=== PATIENT | female | born 1980 | race Caucasian/White ===

== ENCOUNTER 2020-11-29 15:28 | Emergency (ER) | payer OTHER ==
[~2020-11-29] VITALS: Ht 170.2 cm; Wt 105.0 kg
[~2020-11-29 15:28] MED LIST: ACYCLOVIR800 MG PO; CIPROFLOXACN500 MG PO; CYCLOBENZAPR10 MG PO; DRYSOL20 % EX; EQL IBUPROFEN200 MG OR; MEDDOSEPAK PO; MULTIVITAM10 OR; NAPROSYN500 MG PO; POLYSPORIN3.5 GM; PROVENTIL IN; SINGULAIR10 MG PO; TESSALON200 MG PO; VALIUM5 MG PO; VENTOLIN HFA IN; VIGAMOX OD; VIROPTIC7.5 ML OP; VITAMIN B CO OR; VITAMIN C1000 MG OR; ZYRTEC10 M1 PO
[2020-11-29 16:42] LABS: HEMOGLOBIN 13.3 g/dl (12.0-16.0); IMMATURE GRANULOCYTES 0.4 % (0.0-5.0); MEAN CELL VOLUME 90.3 fL CALC (80.0-100.0); MEAN CORPUSCULAR HGB CONC 33.3 g/dL CAL (32.0-36.0); NEUT# 5.64 thou/uL (2.00-7.15); RED BLOOD COUNT 4.43 mill/uL (4.20-5.60); RED CELL DISTRI WIDTH 15.3 % (11.5-15.5)
[2020-11-29] MEDS ORDERED: VENTOLIN HFA108 MCG PO (16:50)
[2020-11-29] MEDS ORDERED: IPRATROPIU0.5 MG/3 M IN (16:51)
[2020-11-29] MEDS ORDERED: HYDROMET1 M1 PO (16:51)
[2020-11-29] MEDS ORDERED: AMBIEN5 MG PO (16:52)
[2020-11-29] MEDS ORDERED: VALIUM2 MG PO (16:52)
[2020-11-29] MEDS ORDERED: VERAPAMIL240 M1 PO (16:53)
[2020-11-29] MEDS ORDERED: PEPCID20 MG PO (16:53)
[2020-11-29] MEDS ORDERED: SINGULAIR10 MG PO (16:53)
[2020-11-29 16:54] LABS: ALBUMIN 4.4 g/dL (3.2-5.0); ALKALINE PHOSPHATASE 45 u/l (38-126); BUN 11 mg/dL (7-17); BUN/CREATININE RATIO 15 (12-20 (CALC)); CARBON DIOXIDE 25 mmol/l (22-30); CHLORIDE 101 mmol/l (95-108); CREATININE 0.8 mg/dL (0.5-1.0); GFR > 60 ML/MIN (>=60 (CALC)); GFR FOR AFR.AMER. > 60 ML/MIN (>=60 (CALC)); LIPASE 100 u/l (23-300); SODIUM 134 mmol/l (137-146); TOTAL PROTEIN 7.9 g/dL (6.3-8.2)
[2020-11-29] MEDS ORDERED: SPIRIVA RE1.25 MCG/A PO (16:54)
[2020-11-29] MEDS ORDERED: SYMBICORT1 AE1 IN (16:54)
[2020-11-29] MEDS ORDERED: FLOVENT HF220 MCG/AC PO (16:55)
[2020-11-29] MEDS ORDERED: VALTREX500 MG PO (16:56)
[2020-11-29] MEDS ORDERED: ZYRTEC10 MG PO (16:56)
[2020-11-29 16:57] LABS: ANION GAP 13 (6-22 (CALC)); BILIRUBIN, TOTAL 1.3 mg/dL (0.0-1.4); POTASSIUM 5.4 mmol/l (3.5-5.1); SGOT/AST 53 u/l (14-36)
[2020-11-29] MEDS ORDERED: SUMATRIPTAN25 MG PO (18:56)
[2020-11-29 19:35] VITALS: BP 136/57
== END 2020-11-29 19:35 | disposition home or self-care (01) | DRG 103 ==
LOC: ED 15:28
PROVIDERS: Family Medicine
DX: R51.9 Headache, unspecified (principal); J45.909 Unspecified asthma, uncomplicated; Z20.822 Contact with and (suspected) exposure to COVID-19

== ENCOUNTER 2020-12-27 15:29 | Observation (INO) | payer OTHER ==
[~2020-12-27 15:29] MED LIST changes: +AMBIEN5 MG PO; +FLOVENT HF220 MCG/AC PO; +HYDROMET1 M1 PO; +IPRATROPIU0.5 MG/3 M IN; +PEPCID20 MG PO; +SPIRIVA RE1.25 MCG/A PO; +SUMATRIPTAN25 MG PO; +SYMBICORT1 AE1 IN; +VALIUM2 MG PO; +VALTREX500 MG PO; +VENTOLIN HFA108 MCG PO; +VERAPAMIL240 M1 PO; +ZYRTEC10 MG PO
[2020-12-27 16:38] LABS: HEMATOCRIT 40.2 % (37.0-47.0); HEMOGLOBIN 13.5 g/dl (12.0-16.0); IMMATURE GRANULOCYTES 0.2 % (0.0-5.0); MEAN CELL VOLUME 91.6 fL CALC (80.0-100.0); MEAN CORPUSCULAR HGB 30.8 pG CALC (26.0-32.0); MEAN CORPUSCULAR HGB CONC 33.6 g/dL CAL (32.0-36.0); NEUT# 4.79 thou/uL (2.00-7.15); RED BLOOD COUNT 4.39 mill/uL (4.20-5.60); RED CELL DISTRI WIDTH 14.3 % (11.5-15.5)
[2020-12-27 16:49] LABS: ALBUMIN 4.3 g/dL (3.2-5.0); ALKALINE PHOSPHATASE 57 u/l (38-126); ANION GAP 15 (6-22 (CALC)); BUN 10 mg/dL (7-17); BUN/CREATININE RATIO 11 (12-20 (CALC)); CARBON DIOXIDE 25 mmol/l (22-30); CHLORIDE 98 mmol/l (95-108); GFR > 60 ML/MIN (>=60 (CALC)); GFR FOR AFR.AMER. > 60 ML/MIN (>=60 (CALC)); MAGNESIUM 1.9 mg/dL (1.6-2.3); POTASSIUM 4.6 mmol/l (3.5-5.1); SGOT/AST 37 u/l (14-36); SODIUM 133 mmol/l (137-146); TOTAL PROTEIN 7.4 g/dL (6.3-8.2)
[2020-12-27 16:53] LABS: BILIRUBIN, TOTAL 0.5 mg/dL (0.0-1.4)
[2020-12-27 20:04] VITALS: BP 141/85
[2020-12-28] MEDS ORDERED: XALATAN0.005 % OU (04:42)
[2020-12-28] MEDS ORDERED: PRED FORTE1 % OU (04:46)
[2020-12-28 05:05] LABS: HEMATOCRIT 39.9 % (37.0-47.0); HEMOGLOBIN 13.2 g/dl (12.0-16.0); IMMATURE GRANULOCYTES 0.3 % (0.0-5.0); MEAN CELL VOLUME 91.7 fL CALC (80.0-100.0); MEAN CORPUSCULAR HGB 30.3 pG CALC (26.0-32.0); MEAN CORPUSCULAR HGB CONC 33.1 g/dL CAL (32.0-36.0); NEUT# 3.18 thou/uL (2.00-7.15); RED BLOOD COUNT 4.35 mill/uL (4.20-5.60); RED CELL DISTRI WIDTH 14.2 % (11.5-15.5)
[2020-12-28 05:31] LABS: ALKALINE PHOSPHATASE 54 u/l (38-126); ANION GAP 13 (6-22 (CALC)); BILIRUBIN, TOTAL 0.4 mg/dL (0.0-1.4); BUN 10 mg/dL (7-17); BUN/CREATININE RATIO 13 (12-20 (CALC)); C-REACTIVE PROTEIN 2.6 mg/dL (0-0.9); CARBON DIOXIDE 22 mmol/l (22-30); CHLORIDE 105 mmol/l (95-108); CREATININE 0.7 mg/dL (0.5-1.0); GFR > 60 ML/MIN (>=60 (CALC)); GFR FOR AFR.AMER. > 60 ML/MIN (>=60 (CALC)); POTASSIUM 4.7 mmol/l (3.5-5.1); SGOT/AST 30 u/l (14-36); SODIUM 136 mmol/l (137-146)
[2020-12-28 08:38] VITALS: BP 136/73
[2020-12-28 11:00] VITALS: BP 153/77
[2020-12-28] MEDS ORDERED: HYDROMET1 M1 PO (11:21)
[2020-12-28] MEDS ORDERED: DECADRON2 MG PO (11:22)
[2020-12-28] MEDS ORDERED: ZOFRAN4 MG/TAB PO (11:23)
== END 2020-12-28 14:37 | disposition home or self-care (01) | DRG 178 ==
LOC: ED 15:29 → ED-I 16:05 → ED 18:37 → MS2 18:38
PROVIDERS: Emergency Medicine; ADMIT Hospitalist; ATTEND Hospitalist
DX: U07.1 COVID-19 (principal); D84.9 Immunodeficiency, unspecified; J45.909 Unspecified asthma, uncomplicated; F41.9 Anxiety disorder, unspecified; G43.909 Migraine, unspecified, not intractable, without status migrainosus; Z79.52 Long term (current) use of systemic steroids
CPT/HCPCS: G0378; J1650

== ENCOUNTER 2021-01-01 17:34 | Observation (INO) | payer OTHER ==
[~2021-01-01] VITALS: Ht 167.6 cm; Wt 102.0 kg
[~2021-01-01 17:34] MED LIST changes: +DECADRON2 MG PO; +PRED FORTE1 % OU; +XALATAN0.005 % OU; +ZOFRAN4 MG/TAB PO
--- NOTE | 2021-01-01 17:38 | NUR ---
PT TO RM 13 VIA W/C FOR B/S TRIAGE.
[2021-01-01 18:08] LABS: HEMOGLOBIN 13.6 g/dl (12.0-16.0); IMMATURE GRANULOCYTES 0.4 % (0.0-5.0); MEAN CELL VOLUME 91.7 fL CALC (80.0-100.0); MEAN CORPUSCULAR HGB 30.4 pG CALC (26.0-32.0); MEAN CORPUSCULAR HGB CONC 33.2 g/dL CAL (32.0-36.0); NEUT# 6.15 thou/uL (2.00-7.15); RED BLOOD COUNT 4.47 mill/uL (4.20-5.60); RED CELL DISTRI WIDTH 14.1 % (11.5-15.5)
[2021-01-01 18:21] LABS: ALBUMIN 3.7 g/dL (3.2-5.0); ALKALINE PHOSPHATASE 67 u/l (38-126); BILIRUBIN, TOTAL 0.5 mg/dL (0.0-1.4); BUN 12 mg/dL (7-17); BUN/CREATININE RATIO 14 (12-20 (CALC)); C-REACTIVE PROTEIN 5.3 mg/dL (0-0.9); CARBON DIOXIDE 21 mmol/l (22-30); CHLORIDE 102 mmol/l (95-108); CREATININE 0.8 mg/dL (0.5-1.0); GFR > 60 ML/MIN (>=60 (CALC)); GFR FOR AFR.AMER. > 60 ML/MIN (>=60 (CALC)); SGOT/AST 29 u/l (14-36); SODIUM 133 mmol/l (137-146)
[2021-01-01 18:23] LABS: ANION GAP 13 (6-22 (CALC)); POTASSIUM 3.4 mmol/l (3.5-5.1)
[2021-01-01 18:23] LABS: GFR > 60 ML/MIN (>=60 (CALC)); GFR FOR AFR.AMER. > 60 ML/MIN (>=60 (CALC))
--- NOTE | 2021-01-01 20:24 | NUR ---
Reassessment of patient completed. No distress noted.
[2021-01-01 20:50] VITALS: BP 93/45
--- NOTE | 2021-01-01 20:50 | NUR ---
PT ARRIVED TO [facility] VIA WC ACCOMPANIED BY ED NURSE. PT APPEARS TO BE STABLE AT THIS TIME. PT SELF AMBULATED TO THE BED. SHE IS ASKING FOR SOMETHING TO EAT. WE DISCUSSED POC AND MEDICATIONS. V/S ASSESSED AT THIS TIME. INCENTIVE SPIROMETER PROVIDED AND SHE DEMONSTRATED ITS USE, ONLY ABLE TO MEASURE BREATHS AT LESS THAN 500 ON IS. EDUCATED HER ON ITS USE AND LEFT IT AT BEDSIDE W/IN REACH. PT ORIENTED TO ROOM, CALL SYSTEM, LIGHTS, TV AND BED, VERBALIZED UNDERSTANDING. PT OXYGEN SAT 98% ON ROOM AIR. NC PLACED AT BEDSIDE WITH AVAILABLE OXYGEN PRN.
--- NOTE | 2021-01-01 23:48 | NUR ---
PT CALLED TO ASK FOR COOL PACKS TO HER FEET STATING THAT "THE STEROIDS MAKE MY FEET HURT." V/S ARE BEING OBTAINED BY LONG TERM AT THIS TIME. PT DENIES ANY OTHER NEEDS AT THIS TIME. CALL LIGHT IS AT SIDE WITHIN REACH. REMINDED HER OF IS USE, VERBALIZED UNDERSTANDING.
[2021-01-02] VITALS: BP 97/50
--- NOTE | 2021-01-02 03:05 | NUR ---
PT CALLED COUGHING AND WOULD NOT ANSWER, UPON ENTERING HER ROOM, SHE WAS SITTING UP IN THE BED WITH LEGS CROSSED COUGHING AND IMMEDIATELY ASKED IF I WOULD PROVIDE PERCUSSION TO HER BACK FOR RELIEF. PT OXYGEN SAT CHECKED FIRST TO BE AT 95% ON ROOM AIR. I HAD THE PT LAY PRONE AND PROVIDED HAND PERCUSSION PER REQUEST. PT REPORTS FEELING RELIEF. ADDITIONAL PILLOW PROVIDED FOR COMFORT IN LAYING PRONE. SHE ASKED HOW LONG SHE NEEDS TO LAY LIKE THAT, I EDUCATED HER ONCE AGAIN ON LAYING PRONE OFF AND ON MUCH SHE CAN WILL ASSIST IN PROVIDING RELIEF. SHE VERBALIZED UNDERSTANDING.
[2021-01-02 04:00] VITALS: BP 135/82
--- NOTE | 2021-01-02 05:23 | NUR ---
PT MEDICATED FOR GENERALIZED PAIN AND PAIN WHEN COUGHING, NAUSEA AND FOR COUGH. ASSISTED TO RESTROOM. PT AMBULATES SELF STABLE.
--- NOTE | 2021-01-02 05:56 | NUR ---
PT IVF REPLENISHED AT THIS TIME. SHE REPORTED BEING "WET." I ASSISTED PT TO STAND FROM RECLINER TO CHANGE HER PAD ON THE CHAIR AND BLOODY URINE DRAINED AROUND NELSON CATHETER. SHE REPORTED THAT THIS HAS BEEN GOING ON FOR TWO MONTHS SINCE SHE HAD THE THREE WAY CATHETER PLACED PREVIOUSLY. PT WAS CLEANED OF BLOODY URINE AND ASSISTED BACK IN THE RECLINER WITH PAD. NELSON CATHETER DRAINING TO GRAVITY BLOODY OUTPUT. PT HAS BEEN NPO SINCE MIDNIGHT. DENIES ANY DISCOMFORT AT THIS TIME, JUST REPORTS NOT BEING ABLE TO SLEEP ANYMORE.
[2021-01-02 06:01] LABS: HEMATOCRIT 38.5 % (37.0-47.0); HEMOGLOBIN 12.7 g/dl (12.0-16.0); IMMATURE GRANULOCYTES 0.5 % (0.0-5.0); MEAN CELL VOLUME 92.8 fL CALC (80.0-100.0); MEAN CORPUSCULAR HGB 30.6 pG CALC (26.0-32.0); NEUT# 5.72 thou/uL (2.00-7.15); RED BLOOD COUNT 4.15 mill/uL (4.20-5.60); RED CELL DISTRI WIDTH 14.3 % (11.5-15.5)
[2021-01-02 06:32] LABS: ALBUMIN 3.4 g/dL (3.2-5.0); ALKALINE PHOSPHATASE 65 u/l (38-126); BILIRUBIN, TOTAL 0.3 mg/dL (0.0-1.4); BUN 10 mg/dL (7-17); BUN/CREATININE RATIO 14 (12-20 (CALC)); CARBON DIOXIDE 22 mmol/l (22-30); CHLORIDE 103 mmol/l (95-108); CREATININE 0.7 mg/dL (0.5-1.0); GFR > 60 ML/MIN (>=60 (CALC)); GFR FOR AFR.AMER. > 60 ML/MIN (>=60 (CALC)); SGOT/AST 21 u/l (14-36); SODIUM 134 mmol/l (137-146); TOTAL PROTEIN 6.2 g/dL (6.3-8.2)
[2021-01-02 06:43] LABS: ANION GAP 13 (6-22 (CALC)); C-REACTIVE PROTEIN 12.8 mg/dL (0-0.9); POTASSIUM 4.4 mmol/l (3.5-5.1)
--- NOTE | 2021-01-02 07:15 | NUR ---
REPORT RECEIVED FROM MERNA FISHER
--- NOTE | 2021-01-02 08:55 | NUR ---
PT RESTING IN SEMI FOWLERS POSITION,A&O X3;VS OBTAINED AND ASSESSMENT COMPLETED;PT DENIES ANY CURRENT PAIN OR DISCOMFORTS,PAIN SCALE AND REPORTING EDUCATED;PT ANXIOUS AND MEDICATED WITH PRN VALIUM 2.5MG PO AT THIS TIME;RESPIRATIONS EVEN AND UNLABORED ON O2 @ 2L VIA NC,CLEAR/DIMINISHED LUNG SOUNDS NOTED;NON-PRODUCTIVE COUGH;I.S. AT BEDSIDE AND PT EDUCATED ON USE,ENCOURAGED USE 10X PER HOUR;ABDOMEN SOFT ON PALPATION AND ACTIVE IN ALL 4 QUADRANTS;STRONG PEDAL PULSES;SKIN INTACT;TELE MONITORING IN PLACE;#20G TO RAC INFUSING NS @ 75ML/HR,SITE APPEARS HEALTHY;PT DENIES ANY ADDITIONAL NEEDS AND IS ENCOURAGED TO CALL FOR ASSISTANCE IF NEEDED;PT REMAINS IN AIR/CONTACT PRECAUTIONS DUE TO COVID19 DX;FALL PRECAUTIONS IN PLACE WITH BED IN THE LOWEST POSITION AND CALL LIGHT IN REACH;WILL CONTINUE TO MONITOR
[2021-01-02 08:56] VITALS: BP 132/91
--- NOTE | 2021-01-02 09:40 | NUR ---
PT note Patient is screened for PT intervention and no needs are identified at this time
[2021-01-02] MEDS ORDERED: TESSALON PERLE100 MG PO (09:57)
[2021-01-02] MEDS ORDERED: FAMOTIDINE40 M1 PO (09:57)
[2021-01-02] MEDS ORDERED: AZELASTINE HCL0.1 % (09:58)
[2021-01-02 10:46] VITALS: BP 132/80
--- NOTE | 2021-01-02 11:05 | NUR ---
PT APPEARS TO BE SLEEPING IN SEMI FOWLERS POSITION;RESPIRATIONS EVEN AND UNLABORED ON O2 @ 2L VIA NC;NO S/S OF DISTRESS NOTED;TELE MONITORING IN PLACE;IV SITE PATENT INFUSING NS WITH EASE PER ORDER;ALL SAFETY PRECAUTIONS REMAIN IN PLACE WITH CALL LIGHT IN REACH;WILL CONTINUE TO MONITOR
--- NOTE | 2021-01-02 11:32 | NUR ---
AT BEDSIDE DISCUSSING POC WITH PT.
--- NOTE | 2021-01-02 12:50 | NUR ---
PT REPORTS COUGH AND "FEELS LIKE I HAVE A FEVER";TEMP TAKEN AND WNL;PT MEDICATED WITH PRN ROBITUSSIN AC AND TYLENOL 650MG PO PER REQUEST;RESPIRATIONS EVEN AND UNLABORED ON RA;IV SITE PATENT AND TELE MONITORING IN PLACE;PT DENIES ANY ADDITIONAL NEEDS;ENCOURAGED TO CALL FOR ASSISTANCE IF NEEDED;CALL LIGHT IN REACH;WILL CONTINUE TO MONITOR
[2021-01-02 13:00] LABS: URINE BILIRUBIN - DIPSTICK NEGATIVE (NEGATIVE); URINE BLOOD DIPSTICK NEGATIVE (NEGATIVE); URINE COLOR YELLOW; URINE GLUCOSE - DIPSTICK NEGATIVE (NEGATIVE); URINE KETONE NEGATIVE (NEGATIVE); URINE LEUK ESTERASE NEGATIVE (NEGATIVE); URINE PH 6.5 (4.5-8.0); URINE PROTEIN - DIPSTICK NEGATIVE (NEG-TRACE); URINE UROBILINOGEN - DIPSTICK 0.2 E.U./dL (0.2)
[2021-01-02 13:22] LABS: URINE NITRITE - DIPSTICK NEGATIVE (Negative)
[2021-01-02 15:12] VITALS: BP 123/70
--- NOTE | 2021-01-02 15:45 | NUR ---
PT RESTING IN SEMI FOWLERS POSITION;RESPIRATIONS APPEAR EVEN AND UNLABORED, PT REPLACED OXYGEN HERSELF REPORTING "I FELT SOB AND MY OXYGEN WAS 92%;PT RE-ASSURED AT THIS TIME;PT DENIES ANY CURRENT PAIN OR DISCOMFORTS;TELE MONITORING IN PLACE;IV FLUIDS INFUSING AT 20ML/HR PER ORDER;PT DENIES ANY ADDITIONAL NEEDS AND IS ENCOURAGED TO CALL FOR ASSISTANCE IF NEEDED;FALL PRECAUTIONS IN PLACE WITH CALL LIGHT IN REACH;WILL CONTINUE TO MONITOR
[2021-01-02 19:00] VITALS: BP 158/71
--- NOTE | 2021-01-02 20:00 | NUR ---
Received Pt from day shift nurse. Pt oriented to person, place and time. Awake and alert. Assesment documented and medications provided (Emar). Educated Pt about medications, plan of care, Covid-19 isolations, falls and safety precautions.
[2021-01-03] VITALS: BP 140/71
--- NOTE | 2021-01-03 | NUR ---
Hourly rounding provided. Anxiety medications provided (See Emar) New iv inserted, patent, clean and intact. Snack provided. Re-educated PT about covid-19 precautions.
--- NOTE | 2021-01-03 04:19 | NUR ---
Hourly rounding provided. Vital signs are stable. No complaint about pain at this time. Re educated PT about plan of care.
[2021-01-03 04:30] VITALS: BP 140/80
[2021-01-03 05:11] LABS: HEMATOCRIT 37.2 % (37.0-47.0); HEMOGLOBIN 12.2 g/dl (12.0-16.0); IMMATURE GRANULOCYTES 0.8 % (0.0-5.0); MEAN CELL VOLUME 93.5 fL CALC (80.0-100.0); MEAN CORPUSCULAR HGB 30.7 pG CALC (26.0-32.0); MEAN CORPUSCULAR HGB CONC 32.8 g/dL CAL (32.0-36.0); NEUT# 6.53 thou/uL (2.00-7.15); RED BLOOD COUNT 3.98 mill/uL (4.20-5.60); RED CELL DISTRI WIDTH 14.3 % (11.5-15.5)
[2021-01-03 05:39] LABS: ALBUMIN 3.3 g/dL (3.2-5.0); ALKALINE PHOSPHATASE 55 u/l (38-126); ANION GAP 14 (6-22 (CALC)); BILIRUBIN, TOTAL 0.3 mg/dL (0.0-1.4); BUN 8 mg/dL (7-17); BUN/CREATININE RATIO 13 (12-20 (CALC)); CARBON DIOXIDE 25 mmol/l (22-30); CHLORIDE 102 mmol/l (95-108); CREATININE 0.6 mg/dL (0.5-1.0); GFR > 60 ML/MIN (>=60 (CALC)); GFR FOR AFR.AMER. > 60 ML/MIN (>=60 (CALC)); POTASSIUM 4.6 mmol/l (3.5-5.1); SGOT/AST 19 u/l (14-36); SODIUM 137 mmol/l (137-146)
[2021-01-03 06:50] VITALS: BP 138/80
--- NOTE | 2021-01-03 06:50 | NUR ---
PATIENT UP TO BR AT THIS TIME. PATIENT EXHIBIT COUGH (NON PRODUCTIVE) REQUESTIONG COUGH MEDICATION AT THIS TIME. 10ML OF GUAIFENESIN GIVEN ORALLY. LUNG DIAZ REMAIN CLEAR/DIMIMISHED IN LOWER BASES. TELE MONITOR IN PLACE AND BEING MONITORED BY ED. CALL LIGHT WITHIN REACH.
[2021-01-03 11:32] VITALS: BP 144/93
--- NOTE | 2021-01-03 11:36 | NUR ---
PATIENT RESTING IN BED AT THIS TIME. PATIENT STATES SHE ONLY GETS SHORT OF BREATH UPON EXERCTION. PATIENT DENIES ANY MAJOR PAIN AND DOES STATE THE COUGH MEDICATION GIVEN EARLIER HELP. SIDERAILS ARE UP CALL LIGHT WITHIN REACH.
--- NOTE | 2021-01-03 12:57 | NUR ---
PATIETN COMPLAINGING OF GENERALIZED PAIN AT THIS TIME AND REQUESTING TYLENOL AND COUGH MEDICATION. PATIENT STATES PAIN LEVEL IS A "7" OUT OF THE PAIN SCALE OF 0-10 AND 650MG OF TYLENOL GIVEN AND 10ML OF GUAIFENESIN ORAL SOLUTIONS GIVEN FOR COUGH. SIDERAILS ARE UP X 2 CALL LIGHT WITHIN REACH.
--- NOTE | 2021-01-03 13:16 | NUR ---
SIX MINUTE WALK TEST PREFORMED AND RESULTS WERE FOLLOWS: O2 WAS OFF FOR 30 MINUTES AND PATIENTS SPO2 WAS 91%. PATIENT WAS THEN WALKED AROUND IN ROOM AND IN HALLWAY FULLY MASKED AND HER SPO2 WAS 90 %. PATIENT RETURNED TO ROOM AND O2 APPLIED AND WALKED AND SPO2 CAME UP TO 93%. PATIENT RETURNED TO BED AND FINAL RESTING SPO2 WAS 94%. ALL FINDING REPORTED TO MARY BARCENAS AT THIS TIME.
[2021-01-03] MEDS ORDERED: ZITHROMAX250 MG PO (14:20)
[2021-01-03] MEDS ORDERED: ASPIRIN REGULA325 M1 PO (14:21)
[2021-01-03] MEDS ORDERED: PREDNISONE10 MG PO (14:21)
--- NOTE | 2021-01-03 15:12 | NUR ---
PATIENT DC AT THIS TIME. IV REMOVED TIP INTACT, TELE REMOVED ED NOTIFIED. PATIENT VERBALIZES UNDERSTANDING OF D/C INSTRUCTIONS.
--- NOTE | 2021-01-03 15:41 | NUR ---
Discharge instructions given. Patient verbalizes understanding of same. Discharged in stable condition via Wheelchair to Home with family. All belongings sent with pt. PATIENT TOOK ALL PERSONAL BELONGINGS AT TIME OF D/C.
== END 2021-01-03 15:38 | disposition home or self-care (01) | DRG 177 ==
LOC: ED 17:34 → ED-I 19:27 → ED 19:40 → MS2 19:41
PROVIDERS: Family Medicine; Nurse Practitioner; ADMIT Internal Medicine; ATTEND Internal Medicine
DX: U07.1 COVID-19 (principal); J12.82 Pneumonia due to coronavirus disease 2019; E87.2 Acidosis; J45.901 Unspecified asthma with (acute) exacerbation; E87.6 Hypokalemia; I10 Essential (primary) hypertension; F41.9 Anxiety disorder, unspecified; K21.9 Gastro-esophageal reflux disease without esophagitis
CPT/HCPCS: G0378; J1650; Q9967

== ENCOUNTER 2021-01-04 08:51 | Inpatient (IN) | payer OTHER ==
[~2021-01-04] VITALS: Ht 170.2 cm; Wt 45.0 kg
[~2021-01-04 08:51] MED LIST changes: +ASPIRIN REGULA325 M1 PO; +AZELASTINE HCL0.1 %; +FAMOTIDINE40 M1 PO; +PREDNISONE10 MG PO; +TESSALON PERLE100 MG PO; +ZITHROMAX250 MG PO
[2021-01-04 10:00] LABS: HEMOGLOBIN 12.8 g/dl (12.0-16.0); IMMATURE GRANULOCYTES 1.2 % (0.0-5.0); MEAN CELL VOLUME 92.6 fL CALC (80.0-100.0); MEAN CORPUSCULAR HGB 30.4 pG CALC (26.0-32.0); MEAN CORPUSCULAR HGB CONC 32.8 g/dL CAL (32.0-36.0); NEUT# 11.78 thou/uL (2.00-7.15); RED BLOOD COUNT 4.21 mill/uL (4.20-5.60); RED CELL DISTRI WIDTH 14.3 % (11.5-15.5)
[2021-01-04 10:12] LABS: ALBUMIN 3.6 g/dL (3.2-5.0); ALKALINE PHOSPHATASE 64 u/l (38-126); ANION GAP 10 (6-22 (CALC)); BILIRUBIN, TOTAL 0.4 mg/dL (0.0-1.4); BUN 13 mg/dL (7-17); BUN/CREATININE RATIO 17 (12-20 (CALC)); C-REACTIVE PROTEIN 8.8 mg/dL (0-0.9); CARBON DIOXIDE 29 mmol/l (22-30); CHLORIDE 97 mmol/l (95-108); CREATININE 0.7 mg/dL (0.5-1.0); GFR > 60 ML/MIN (>=60 (CALC)); GFR FOR AFR.AMER. > 60 ML/MIN (>=60 (CALC)); POTASSIUM 3.9 mmol/l (3.5-5.1); SGOT/AST 24 u/l (14-36); SODIUM 132 mmol/l (137-146); TOTAL PROTEIN 6.9 g/dL (6.3-8.2)
[2021-01-04 10:35] LABS: URINE BILIRUBIN - DIPSTICK NEGATIVE (NEGATIVE); URINE BLOOD DIPSTICK NEGATIVE (NEGATIVE); URINE COLOR YELLOW; URINE GLUCOSE - DIPSTICK NEGATIVE (NEGATIVE); URINE KETONE NEGATIVE (NEGATIVE); URINE LEUK ESTERASE NEGATIVE (NEGATIVE); URINE PH 7.5 (4.5-8.0); URINE PROTEIN - DIPSTICK NEGATIVE (NEG-TRACE); URINE UROBILINOGEN - DIPSTICK 0.2 E.U./dL (0.2)
[2021-01-04 10:37] LABS: URINE NITRITE - DIPSTICK NEGATIVE (Negative)
[2021-01-04 16:12] VITALS: BP 141/83
[2021-01-04 19:31] VITALS: BP 121/79
[2021-01-05] VITALS (7 sets, daily range): BP systolic 114–160; BP diastolic 59–84
[2021-01-05 05:52] LABS: HEMATOCRIT 35.6 % (37.0-47.0); HEMOGLOBIN 11.9 g/dl (12.0-16.0); IMMATURE GRANULOCYTES 1.4 % (0.0-5.0); MEAN CELL VOLUME 92.5 fL CALC (80.0-100.0); MEAN CORPUSCULAR HGB 30.9 pG CALC (26.0-32.0); MEAN CORPUSCULAR HGB CONC 33.4 g/dL CAL (32.0-36.0); NEUT# 13.54 thou/uL (2.00-7.15); RED BLOOD COUNT 3.85 mill/uL (4.20-5.60); RED CELL DISTRI WIDTH 14.2 % (11.5-15.5)
[2021-01-05 06:09] LABS: ALKALINE PHOSPHATASE 54 u/l (38-126); ANION GAP 12 (6-22 (CALC)); BILIRUBIN, TOTAL 0.4 mg/dL (0.0-1.4); BUN 12 mg/dL (7-17); BUN/CREATININE RATIO 19 (12-20 (CALC)); CARBON DIOXIDE 24 mmol/l (22-30); CHLORIDE 101 mmol/l (95-108); CREATININE 0.6 mg/dL (0.5-1.0); GFR > 60 ML/MIN (>=60 (CALC)); GFR FOR AFR.AMER. > 60 ML/MIN (>=60 (CALC)); POTASSIUM 4.4 mmol/l (3.5-5.1); SGOT/AST 21 u/l (14-36); SODIUM 133 mmol/l (137-146); TOTAL PROTEIN 5.8 g/dL (6.3-8.2)
[2021-01-05 06:33] LABS: C-REACTIVE PROTEIN 18.6 mg/dL (0-0.9)
[2021-01-06] VITALS (11 sets, daily range): BP systolic 110–145; BP diastolic 58–85
[2021-01-06 06:57] LABS: ALKALINE PHOSPHATASE 50 u/l (38-126); ANION GAP 14 (6-22 (CALC)); BILIRUBIN, TOTAL 0.4 mg/dL (0.0-1.4); BUN 15 mg/dL (7-17); BUN/CREATININE RATIO 24 (12-20 (CALC)); CARBON DIOXIDE 22 mmol/l (22-30); CHLORIDE 103 mmol/l (95-108); CREATININE 0.6 mg/dL (0.5-1.0); GFR > 60 ML/MIN (>=60 (CALC)); GFR FOR AFR.AMER. > 60 ML/MIN (>=60 (CALC)); HEMATOCRIT 36.4 % (37.0-47.0); HEMOGLOBIN 11.8 g/dl (12.0-16.0); MEAN CELL VOLUME 92.9 fL CALC (80.0-100.0); MEAN CORPUSCULAR HGB 30.1 pG CALC (26.0-32.0); MEAN CORPUSCULAR HGB CONC 32.4 g/dL CAL (32.0-36.0); POTASSIUM 4.6 mmol/l (3.5-5.1); RED BLOOD COUNT 3.92 mill/uL (4.20-5.60); RED CELL DISTRI WIDTH 14.2 % (11.5-15.5); SGOT/AST 20 u/l (14-36); SODIUM 135 mmol/l (137-146); TOTAL PROTEIN 5.7 g/dL (6.3-8.2)
[2021-01-07] VITALS (14 sets, daily range): BP systolic 111–154; BP diastolic 62–87
[2021-01-07 06:14] LABS: HEMATOCRIT 36.4 % (37.0-47.0); HEMOGLOBIN 11.9 g/dl (12.0-16.0); IMMATURE GRANULOCYTES 5.8 % (0.0-5.0); MEAN CELL VOLUME 92.6 fL CALC (80.0-100.0); MEAN CORPUSCULAR HGB 30.3 pG CALC (26.0-32.0); MEAN CORPUSCULAR HGB CONC 32.7 g/dL CAL (32.0-36.0); NEUT# 13.27 thou/uL (2.00-7.15); RED BLOOD COUNT 3.93 mill/uL (4.20-5.60); RED CELL DISTRI WIDTH 14.2 % (11.5-15.5)
[2021-01-07 06:50] LABS: ALKALINE PHOSPHATASE 60 u/l (38-126); ANION GAP 14 (6-22 (CALC)); BILIRUBIN, TOTAL 0.4 mg/dL (0.0-1.4); BUN 19 mg/dL (7-17); BUN/CREATININE RATIO 27 (12-20 (CALC)); C-REACTIVE PROTEIN 5.6 mg/dL (0-0.9); CARBON DIOXIDE 22 mmol/l (22-30); CHLORIDE 102 mmol/l (95-108); CREATININE 0.7 mg/dL (0.5-1.0); GFR > 60 ML/MIN (>=60 (CALC)); GFR FOR AFR.AMER. > 60 ML/MIN (>=60 (CALC)); POTASSIUM 4.5 mmol/l (3.5-5.1); SGOT/AST 21 u/l (14-36); SODIUM 133 mmol/l (137-146); TOTAL PROTEIN 5.7 g/dL (6.3-8.2)
[2021-01-08] VITALS (22 sets, daily range): BP systolic 116–152; BP diastolic 63–84
[2021-01-08 05:15] LABS: HEMATOCRIT 35.8 % (37.0-47.0); HEMOGLOBIN 11.9 g/dl (12.0-16.0); MEAN CELL VOLUME 92.5 fL CALC (80.0-100.0); MEAN CORPUSCULAR HGB 30.7 pG CALC (26.0-32.0); MEAN CORPUSCULAR HGB CONC 33.2 g/dL CAL (32.0-36.0); RED BLOOD COUNT 3.87 mill/uL (4.20-5.60)
[2021-01-08 05:43] LABS: ALKALINE PHOSPHATASE 58 u/l (38-126); ANION GAP 14 (6-22 (CALC)); BILIRUBIN, TOTAL 0.4 mg/dL (0.0-1.4); BUN 19 mg/dL (7-17); BUN/CREATININE RATIO 27 (12-20 (CALC)); CARBON DIOXIDE 24 mmol/l (22-30); CHLORIDE 98 mmol/l (95-108); CREATININE 0.7 mg/dL (0.5-1.0); GFR > 60 ML/MIN (>=60 (CALC)); GFR FOR AFR.AMER. > 60 ML/MIN (>=60 (CALC)); POTASSIUM 4.7 mmol/l (3.5-5.1); SGOT/AST 19 u/l (14-36); SODIUM 131 mmol/l (137-146); TOTAL PROTEIN 5.6 g/dL (6.3-8.2)
[2021-01-09] VITALS (23 sets, daily range): BP systolic 102–135; BP diastolic 55–81
[2021-01-09 04:14] LABS: HEMATOCRIT 35.1 % (37.0-47.0); HEMOGLOBIN 11.8 g/dl (12.0-16.0); MEAN CELL VOLUME 91.6 fL CALC (80.0-100.0); MEAN CORPUSCULAR HGB 30.8 pG CALC (26.0-32.0); MEAN CORPUSCULAR HGB CONC 33.6 g/dL CAL (32.0-36.0); NEUT# 11.47 thou/uL (2.00-7.15); RED BLOOD COUNT 3.83 mill/uL (4.20-5.60); RED CELL DISTRI WIDTH 13.7 % (11.5-15.5)
[2021-01-09 04:19] LABS: IMMATURE GRANULOCYTES 7.3 % (0.0-5.0)
[2021-01-09 04:49] LABS: ALBUMIN 2.9 g/dL (3.2-5.0); ALKALINE PHOSPHATASE 72 u/l (38-126); ANION GAP 13 (6-22 (CALC)); BILIRUBIN, TOTAL 0.5 mg/dL (0.0-1.4); BUN 20 mg/dL (7-17); BUN/CREATININE RATIO 28 (12-20 (CALC)); C-REACTIVE PROTEIN 2.5 mg/dL (0-0.9); CARBON DIOXIDE 26 mmol/l (22-30); CHLORIDE 96 mmol/l (95-108); CREATININE 0.7 mg/dL (0.5-1.0); GFR > 60 ML/MIN (>=60 (CALC)); GFR FOR AFR.AMER. > 60 ML/MIN (>=60 (CALC)); POTASSIUM 4.9 mmol/l (3.5-5.1); SGOT/AST 17 u/l (14-36); SODIUM 130 mmol/l (137-146); TOTAL PROTEIN 5.4 g/dL (6.3-8.2)
[2021-01-10] VITALS (23 sets, daily range): BP systolic 105–132; BP diastolic 59–77
[2021-01-10 06:39] LABS: ALKALINE PHOSPHATASE 71 u/l (38-126); ANION GAP 14 (6-22 (CALC)); BILIRUBIN, TOTAL 0.5 mg/dL (0.0-1.4); BUN 19 mg/dL (7-17); BUN/CREATININE RATIO 29 (12-20 (CALC)); CARBON DIOXIDE 26 mmol/l (22-30); CHLORIDE 94 mmol/l (95-108); CREATININE 0.7 mg/dL (0.5-1.0); GFR > 60 ML/MIN (>=60 (CALC)); GFR FOR AFR.AMER. > 60 ML/MIN (>=60 (CALC)); HEMATOCRIT 36.7 % (37.0-47.0); MEAN CELL VOLUME 92.9 fL CALC (80.0-100.0); MEAN CORPUSCULAR HGB 30.4 pG CALC (26.0-32.0); MEAN CORPUSCULAR HGB CONC 32.7 g/dL CAL (32.0-36.0); NEUT# 10.78 thou/uL (2.00-7.15); POTASSIUM 4.8 mmol/l (3.5-5.1); RED BLOOD COUNT 3.95 mill/uL (4.20-5.60); RED CELL DISTRI WIDTH 13.8 % (11.5-15.5); SGOT/AST 19 u/l (14-36); SODIUM 129 mmol/l (137-146); TOTAL PROTEIN 5.5 g/dL (6.3-8.2)
[2021-01-10 06:48] LABS: IMMATURE GRANULOCYTES 8.5 % (0.0-5.0)
[2021-01-11] VITALS (20 sets, daily range): BP systolic 112–136; BP diastolic 62–78
[2021-01-11 06:42] LABS: HEMATOCRIT 36.6 % (37.0-47.0); HEMOGLOBIN 12.1 g/dl (12.0-16.0); MEAN CORPUSCULAR HGB 30.4 pG CALC (26.0-32.0); MEAN CORPUSCULAR HGB CONC 33.1 g/dL CAL (32.0-36.0); NEUT# 12.25 thou/uL (2.00-7.15); RED BLOOD COUNT 3.98 mill/uL (4.20-5.60); RED CELL DISTRI WIDTH 13.7 % (11.5-15.5)
[2021-01-11 06:55] LABS: IMMATURE GRANULOCYTES 7.3 % (0.0-5.0)
[2021-01-11 07:34] LABS: ALKALINE PHOSPHATASE 72 u/l (38-126); ANION GAP 13 (6-22 (CALC)); BILIRUBIN, TOTAL 0.6 mg/dL (0.0-1.4); BUN 24 mg/dL (7-17); BUN/CREATININE RATIO 35 (12-20 (CALC)); C-REACTIVE PROTEIN 1.2 mg/dL (0-0.9); CARBON DIOXIDE 27 mmol/l (22-30); CHLORIDE 95 mmol/l (95-108); CREATININE 0.7 mg/dL (0.5-1.0); GFR > 60 ML/MIN (>=60 (CALC)); GFR FOR AFR.AMER. > 60 ML/MIN (>=60 (CALC)); POTASSIUM 4.9 mmol/l (3.5-5.1); SGOT/AST 17 u/l (14-36); SODIUM 130 mmol/l (137-146); TOTAL PROTEIN 5.4 g/dL (6.3-8.2)
[2021-01-12] VITALS (14 sets, daily range): BP systolic 100–143; BP diastolic 55–85
[2021-01-12 05:35] LABS: HEMOGLOBIN 12.2 g/dl (12.0-16.0); IMMATURE GRANULOCYTES 4.9 % (0.0-5.0); MEAN CELL VOLUME 92.5 fL CALC (80.0-100.0); MEAN CORPUSCULAR HGB 31.4 pG CALC (26.0-32.0); MEAN CORPUSCULAR HGB CONC 33.9 g/dL CAL (32.0-36.0); NEUT# 11.06 thou/uL (2.00-7.15); RED BLOOD COUNT 3.89 mill/uL (4.20-5.60); RED CELL DISTRI WIDTH 13.8 % (11.5-15.5)
[2021-01-12 05:59] LABS: ALBUMIN 2.8 g/dL (3.2-5.0); ALKALINE PHOSPHATASE 75 u/l (38-126); ANION GAP 13 (6-22 (CALC)); BILIRUBIN, TOTAL 0.6 mg/dL (0.0-1.4); BUN 26 mg/dL (7-17); BUN/CREATININE RATIO 35 (12-20 (CALC)); CARBON DIOXIDE 25 mmol/l (22-30); CHLORIDE 96 mmol/l (95-108); CREATININE 0.7 mg/dL (0.5-1.0); GFR > 60 ML/MIN (>=60 (CALC)); GFR FOR AFR.AMER. > 60 ML/MIN (>=60 (CALC)); POTASSIUM 5.1 mmol/l (3.5-5.1); SGOT/AST 18 u/l (14-36); SODIUM 129 mmol/l (137-146); TOTAL PROTEIN 5.2 g/dL (6.3-8.2)
[2021-01-13] VITALS (7 sets, daily range): BP systolic 116–140; BP diastolic 61–75
[2021-01-13 06:38] LABS: HEMOGLOBIN 11.7 g/dl (12.0-16.0); IMMATURE GRANULOCYTES 2.7 % (0.0-5.0); MEAN CELL VOLUME 92.3 fL CALC (80.0-100.0); MEAN CORPUSCULAR HGB 30.9 pG CALC (26.0-32.0); MEAN CORPUSCULAR HGB CONC 33.4 g/dL CAL (32.0-36.0); NEUT# 10.7 thou/uL (2.00-7.15); RED BLOOD COUNT 3.79 mill/uL (4.20-5.60)
[2021-01-13 06:50] LABS: ALBUMIN 2.8 g/dL (3.2-5.0); ALKALINE PHOSPHATASE 75 u/l (38-126); ANION GAP 11 (6-22 (CALC)); BUN 24 mg/dL (7-17); BUN/CREATININE RATIO 36 (12-20 (CALC)); C-REACTIVE PROTEIN 0.7 mg/dL (0-0.9); CARBON DIOXIDE 25 mmol/l (22-30); CHLORIDE 97 mmol/l (95-108); CREATININE 0.7 mg/dL (0.5-1.0); GFR > 60 ML/MIN (>=60 (CALC)); GFR FOR AFR.AMER. > 60 ML/MIN (>=60 (CALC)); POTASSIUM 4.6 mmol/l (3.5-5.1); SGOT/AST 16 u/l (14-36); SODIUM 129 mmol/l (137-146)
[2021-01-13 06:55] LABS: BILIRUBIN, TOTAL 0.9 mg/dL (0.0-1.4)
[2021-01-14 03:57] VITALS: BP 112/61
[2021-01-14 05:47] LABS: HEMATOCRIT 35.9 % (37.0-47.0); HEMOGLOBIN 11.8 g/dl (12.0-16.0); IMMATURE GRANULOCYTES 2.1 % (0.0-5.0); MEAN CELL VOLUME 93.2 fL CALC (80.0-100.0); MEAN CORPUSCULAR HGB 30.6 pG CALC (26.0-32.0); MEAN CORPUSCULAR HGB CONC 32.9 g/dL CAL (32.0-36.0); NEUT# 8.94 thou/uL (2.00-7.15); RED BLOOD COUNT 3.85 mill/uL (4.20-5.60); RED CELL DISTRI WIDTH 14.1 % (11.5-15.5)
[2021-01-14 06:03] LABS: ALBUMIN 2.8 g/dL (3.2-5.0); ALKALINE PHOSPHATASE 72 u/l (38-126); ANION GAP 11 (6-22 (CALC)); BUN 27 mg/dL (7-17); BUN/CREATININE RATIO 38 (12-20 (CALC)); CARBON DIOXIDE 24 mmol/l (22-30); CHLORIDE 98 mmol/l (95-108); CREATININE 0.7 mg/dL (0.5-1.0); GFR > 60 ML/MIN (>=60 (CALC)); GFR FOR AFR.AMER. > 60 ML/MIN (>=60 (CALC)); POTASSIUM 4.5 mmol/l (3.5-5.1); SGOT/AST 18 u/l (14-36); SODIUM 129 mmol/l (137-146)
[2021-01-14 08:07] VITALS: BP 135/73
[2021-01-14 10:30] VITALS: BP 111/60
[2021-01-14 14:25] VITALS: BP 138/72
[2021-01-14 19:00] VITALS: BP 130/71
[2021-01-15] VITALS: BP 123/72
[2021-01-15 04:00] VITALS: BP 103/2
[2021-01-15 05:43] LABS: HEMATOCRIT 34.8 % (37.0-47.0); HEMOGLOBIN 11.5 g/dl (12.0-16.0); IMMATURE GRANULOCYTES 1.8 % (0.0-5.0); MEAN CELL VOLUME 92.6 fL CALC (80.0-100.0); MEAN CORPUSCULAR HGB 30.6 pG CALC (26.0-32.0); RED BLOOD COUNT 3.76 mill/uL (4.20-5.60); RED CELL DISTRI WIDTH 13.8 % (11.5-15.5)
[2021-01-15 06:15] VITALS: BP 117/74
[2021-01-15 06:20] LABS: ALBUMIN 2.7 g/dL (3.2-5.0); ALKALINE PHOSPHATASE 75 u/l (38-126); ANION GAP 11 (6-22 (CALC)); BILIRUBIN, TOTAL 0.9 mg/dL (0.0-1.4); BUN 27 mg/dL (7-17); BUN/CREATININE RATIO 36 (12-20 (CALC)); C-REACTIVE PROTEIN < 0.5 mg/dL (0-0.9); CARBON DIOXIDE 25 mmol/l (22-30); CHLORIDE 99 mmol/l (95-108); CREATININE 0.7 mg/dL (0.5-1.0); GFR > 60 ML/MIN (>=60 (CALC)); GFR FOR AFR.AMER. > 60 ML/MIN (>=60 (CALC)); POTASSIUM 4.5 mmol/l (3.5-5.1); SGOT/AST 16 u/l (14-36); SODIUM 130 mmol/l (137-146); TOTAL PROTEIN 4.9 g/dL (6.3-8.2)
[2021-01-15 10:30] VITALS: BP 125/76
[2021-01-15] MEDS ORDERED: PREDNISONE10 MG PO (11:51)
[2021-01-15] MEDS ORDERED: FLEXERIL5 M1 PO (11:59)
== END 2021-01-15 15:00 | disposition home or self-care (01) | DRG 177 ==
LOC: ED 08:51 → ED-I 11:10 → ED 11:35 → MS2 11:36 → ICU 22:39 → MS2 01-12 13:02
PROVIDERS: Family Medicine; Hospitalist; Nurse Practitioner; ADMIT Internal Medicine; ATTEND Internal Medicine
PROC: XW033E5 Introduction of Remdesivir Anti-infective into Peripheral Vein, Percutaneous Approach, New Technology Group 5 (ICD-10-PCS; principal; 2021-01-04)
DX: U07.1 COVID-19 (principal); J12.82 Pneumonia due to coronavirus disease 2019; J96.01 Acute respiratory failure with hypoxia; J45.901 Unspecified asthma with (acute) exacerbation; I10 Essential (primary) hypertension; F41.9 Anxiety disorder, unspecified; K21.9 Gastro-esophageal reflux disease without esophagitis; J38.3 Other diseases of vocal cords; I95.9 Hypotension, unspecified; R73.9 Hyperglycemia, unspecified; T38.0X5A Adverse effect of glucocorticoids and synthetic analogues, initial encounter; R07.89 Other chest pain
CPT/HCPCS: J1650